=== PATIENT | male | born 1990 | race Caucasian/White ===

== ENCOUNTER 2016-04-28 13:19 | Emergency (ER) | payer OTHER ==
[2016-04-28 14:39] VITALS: BP 129/76
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
--- NOTE | 2016-04-28 15:48 | RAD ---
INDICATION: Right shoulder injury COMPARISON: None TECHNIQUE: AP, lateral, and oblique views were obtained. FINDINGS: The bony structures, joint spaces, and soft tissues are normal for age. IMPRESSION: NEGATIVE EXAMINATION.
== END 2016-04-28 16:11 | disposition home or self-care (01) ==
LOC: UCCORT 13:19
DX: S43.401A Unspecified sprain of right shoulder joint, initial encounter (principal); S83.92XA Sprain of unspecified site of left knee, initial encounter; S20.212A Contusion of left front wall of thorax, initial encounter; V59.88XA Occupant (driver) (passenger) of pick-up truck or van injured in other specified transport accidents, initial encounter; Y93.29 Activity, other involving ice and snow; Z87.891 Personal history of nicotine dependence
CPT/HCPCS: 99212; G0463

== ENCOUNTER 2016-05-04 13:54 | Emergency (ER) | payer OTHER ==
[2016-05-04 15:46] VITALS: BP 143/76
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
--- NOTE | 2016-05-04 16:46 | RAD ---
INDICATION: Cough, chest pain, nasal congestion, shortness of breath. Symptoms for multiple weeks. COMPARISON: September 27, 2011 TECHNIQUE: Dual energy PA and routine lateral views of the chest were obtained. REPORT: Obese body habitus limits image quality. No alveolar consolidation, focal pulmonary lesion, pleural effusion, pneumothorax. The heart, pulmonary vasculature, and mediastinal contours are unremarkable. IMPRESSION: No evidence for acute intrathoracic disease.
== END 2016-05-04 17:10 | disposition home or self-care (01) ==
LOC: UCCORT 13:54
DX: R07.89 Other chest pain (principal); J40 Bronchitis, not specified as acute or chronic; Z87.891 Personal history of nicotine dependence
CPT/HCPCS: 71020; 93005; 99212; G0463

== ENCOUNTER 2017-06-09 21:14 | Emergency (ER) | payer SELFPAY ==
[2017-06-09 21:33] VITALS: BP 130/72
--- NOTE | 2017-06-09 21:45 | UC ---
Upper Extremity HPI - HPI Summary HPI Summary: 26 year old male with multiple complaints. the patient has two complaints ... 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 the right leg went numb, his right foot felt like it was asleep and his right thigh felt cold to touch. right now he says he feels like he had just worked out and the leg feels tired. he is here on his lunch break. the leg has not given out. no foot drop. no loss of strength. 2) he has had right wrist pain for the last 3 months. when he lifts or moves a certain way he has a burning sensation. worsens with activity. no trauma. no fall. no weakness . no night time pain. [ End ] - History of Current Complaint Chief Complaint: UCGeneralIllness Stated Complaint: RIGHT WRIST PAIN, RIGHT LEG NUMBNESS Time Seen by Provider: 06/09/17 21:33 Hx Obtained From: Patient Onset/Duration: Sudden Onset, Gradual Onset Severity Initially: Moderate Severity Currently: Moderate Pain Intensity: 0 Aggravating Factor(s): Movement - Allergies/Home Medications Allergies/Adverse Reactions: Allergies Allergy/AdvReac Type Severity Reaction Status Date / Time No Known Allergies Allergy Verified 06/09/17 21:31 Home Medications: Home Medications NK [No Home Medications Reported] 06/09/17 [History Confirmed 06/09/17] PMH/Surg Hx/FS Hx/Imm Hx Previously Healthy: Yes - Surgical History Surgical History: Yes Surgery Procedure, Year, and Place: Left Shoulder Labrum Repair, 2010 - Family History Known Family History: Positive: Hypertension - Social History Occupation: Employed Full-time Alcohol Use: Weekly Alcohol Amount: 1-2 drinks, but recently none Substance Use Type: None Smoking Status (MU): Former Smoker Type: Smokeless Tobacco Amount Used/How Often: 1 can per 2 days Have You Smoked in the Last Year: Yes - Immunization History Most Recent Tetanus Shot: 2012 Review of Systems Musculoskeletal: Arthralgia Neurological: Numbness - right leg earlier today but not any longer Is Patient Immunocompromised?: No All Other Systems Reviewed And Are Negative: Yes Physical Exam Triage Information Reviewed: Yes Appearance: Well-Appearing, No Pain Distress, Well-Nourished Vital Signs: Initial Vital Signs Temp 99.2 F 06/09/17 21:25 Pulse 74 06/09/17 21:25 Resp 12 06/09/17 21:25 BP 130/72 06/09/17 21:25 Pulse Ox 100 06/09/17 21:25 Vital Signs Reviewed: Yes Musculoskeletal Exam: Normal Musculoskeletal: Positive: Strength Intact, ROM Intact, No Edema, Other: - Right mild lateral wrist tenderness / near anatomic snuff box. neg tinel/phalen and strength 5/5. no weakness. normal sensation. Right leg : normal exam. heel to toe normal. strength 5/5. normal gait. normal lumbar spine exam. no sp tenderness. no spasms but mild right paraspinal L4-5 tenderness to palpation. can go up on toes and on heels without pain. neg SLR. Neurological Exam: Normal Psychological Exam: Normal Skin Exam: Normal Upper Extremity Course/Dx - Course Course Of Treatment: discussed at formerly [facility], [facility] red flags for back pain and non present . no lifting at work . i prefer he does not go to work for 3-4 days but he states he is on probation and will go to work even if I say no. he will call Ortho for follow up for his pain. this is work related. - Differential Dx/Diagnosis Differential Diagnosis/HQI/PQRI: Strain, Sprain Provider Diagnoses: Right wrist pain . Lumbar strain Discharge - Discharge Plan Condition: Good Disposition: HOME Patient Education Materials: Low Back Strain (ED), Wrist Injury (ED) Forms: *Work Release Referrals: No Primary Care Phys,NOPCP [Primary Care Provider] - Chris Girard MD [Medical Doctor] - (Ortho referral ) Additional Instructions: As we discussed if you get any of those red flags (foot drop, incontinence, leg giving out) please go to Emergency Room
== END 2017-06-09 21:56 | disposition home or self-care (01) ==
LOC: UCCORT 21:14
DX: S39.012A Strain of muscle, fascia and tendon of lower back, initial encounter (principal); X50.0XXA Overexertion from strenuous movement or load, initial encounter; X50.3XXA Overexertion from repetitive movements, initial encounter; Y93.89 Activity, other specified; Y92.9 Unspecified place or not applicable; Y99.0 Civilian activity done for income or pay; Z87.891 Personal history of nicotine dependence; M25.531 Pain in right wrist
CPT/HCPCS: 99212; G0463